=== PATIENT | male | born 1970 | race Hispanic/Latino ===

== ENCOUNTER 2017-09-06 20:03 | Inpatient (IN) | payer MEDICAID ==
[2017-09-06 20:05] VITALS: BMI 20.9
--- NOTE | 2017-09-06 20:09 | ED PDOC ---
Arrival/HPI - General Chief Complaint: Psychiatric Evaluation Time Seen by Provider: 09/06/17 20:04 - History of Present Illness Associated Symptoms (Text): 09/06/17 20:07 Patient was seen and evaluated at another emergency department for depression with suicidal ideation and substance abuse. He was medically cleared there. Therefore, no exam or review of systems is necessary at this time. I reviewed his laboratory data. Patient is aware that he is being admitted to the psychiatric floor for depression with suicidal ideation and substance abuse. Family/Social History Family/Social History: Unknown Family HX Allergies/Home Meds Allergies/Adverse Reactions: Allergies No Known Allergies Allergy (Unverified 09/06/17 20:05) Disposition/Present on Arrival - Present on Arrival Any Indicators Present on Arrival: No History of DVT/PE: No History of Uncontrolled Diabetes: No Urinary Catheter: No History of Decub. Ulcer: No - Disposition Have Diagnosis and Disposition been Completed?: Yes Diagnosis: Depression, Suicidal ideation, Substance abuse Disposition: HOSPITALIZED Disposition Time: 20:09 Patient Plan: Admission Condition: GOOD Forms: [employer] (Estonian)
[2017-09-06 20:47] VITALS: O2SAT 99
[2017-09-06] MEDS ORDERED: Alum-Mag Hydrox-Simethicone Susp (30 mL) PO PRN (22:35)
[2017-09-06] MEDS ORDERED: Magnesium Hydroxide Susp 30 ml UD PO PRN (22:35)
--- NOTE | 2017-09-06 23:34 | PCM.BM ---
<Jerrica Majano - Last Filed: 09/06/17 23:29> Treatment Plan Problems - Problems identified on initial assessmt Anxiety Related to Substance Use Date Initiated: 09/06/17 Time Initiated: 23:34 Assessment reference: NA Status: Active Hopelessness/Helplessness Date Initiated: 09/06/17 Time Initiated: 23:34 Assessment reference: NA Status: Active Ineffective Coping Date Initiated: 09/06/17 Time Initiated: 23:34 Assessment reference: NA Status: Active Altered Sleep Patterns Date Initiated: 09/06/17 Time Initiated: 23:34 Assessment reference: NA Status: Active Nutrition Less than Body Requirements Date Initiated: 09/06/17 Time Initiated: 23:35 Assessment reference: NA Status: Active Treatment assets and liabiliti Patient Assests: cooperative, self-reliant, ADL independent, physically healthy , negotiates basic needs, cognitively intact Patient Liabilities: live alone, financial problems, poor support system, relationship conflicts, substance abuse - Milieu Protocol Maintain good personal hygiene: daily Encourage regular showers, daily Remind patient to perform daily oral care, daily Assist patient to perform ADL's Conduct patient checks and document Observation sheet: Q15 minutes Maintain personal safety: every shift Educate patient to report safety concerns to staff, every shift Monitor environment for contraband/sharps Medication safety: Monitor for expected outcome, potential side effects: every shift, Assess barriers to learning: every shift, Assess readiness for medication education: every shift Discharge/Continuing Care - Education Needs Education Needs: Patient Medication, Patient Diagnosis/Disease Process, Patient Coping Skills, Patient Community resources, Patient Activities of Daily Living, Patient Nutrition, Patient Health Practices/Safety, Patient Personal Hygiene/ Grooming, Patient Aftercare Safety Plan - Discharge Discharge Criteria: Tolerates medication w/o severe side effects, Free of Suicidal thoughts, Normal sleep pattern, Ability to care for self <Zaira Eduardo - Last Filed: 09/07/17 10:14> - Diagnosis (1) Depression Status: Acute Interventions: Effexor XR 75 mg po daily for depression * Neurontin 300 TID, off label for mood control and anxiety * Seroquel 100 mg HS for mood control, off-label for insomnia * Trazodone 50 mg po HS prn: insomnia * Consider naltrexone to help with drug abstinence 09/07/17 10:15 (2) Substance abuse Status: Acute Interventions: Effexor XR 75 mg po daily for depression * Neurontin 300 TID, off label for mood control and anxiety * Seroquel 100 mg HS for mood control, off-label for insomnia * Trazodone 50 mg po HS prn: insomnia * Consider naltrexone to help with drug abstinence 09/07/17 10:15 <Faraz Baker - Last Filed: 09/09/17 10:08> Treatment assets and liabiliti Patient Assests: cooperative, self-reliant, ADL independent, negotiates basic needs, cognitively intact Patient Liabilities: substance abuse - Milieu Protocol Maintain good personal hygiene: daily Encourage regular showers, daily Remind patient to perform daily oral care, daily Assist patient to perform ADL's Conduct patient checks and document Observation sheet: Q15 minutes Maintain personal safety: every shift Educate patient to report safety concerns to staff, every shift Monitor environment for contraband/sharps Medication safety: Monitor for expected outcome, potential side effects: every shift, Assess barriers to learning: every shift, Assess readiness for medication education: every shift Discharge/Continuing Care - Education Needs Education Needs: Patient Medication, Patient Diagnosis/Disease Process, Patient Coping Skills - Discharge Discharge Criteria: Tolerates medication w/o severe side effects, Free of Suicidal thoughts, Normal sleep pattern, Ability to care for self, No longer exhibiting s/s of withdrawal Discharge to:: Home <Laura Rollins - Last Filed: 09/09/17 11:36> Family Contact Family involvement: Family/SO is involved Family contact: Patient agrees to contact <Francesca Koch - Last Filed: 09/09/17 11:42>
[2017-09-07 08:08] LABS: GLUCOSE,FASTING 93 mg/dL (65-110); HDL CHOLESTEROL 37 mg/dL (29-60)
[2017-09-07 08:19] LABS: LDL CHOLESTEROL 84 mg/dL (0-129)
--- NOTE | 2017-09-07 10:13 | PCM.PSYCH ---
Initial Psychiatric Evaluation - Initial Psychiatric Evaluation Type of Admission: Voluntary Legal Status: Capacity History of Present Illness and Precipitating Events: Patient is a single 47 yo homeless male with self-reported history of bipolar depression, anxiety, opiate and cocaine use disorder, multiple prior psychiatric admissions-most recently 2 weeks ago at [facility] in [place], in psychiatric treatment with Dr. Verde, likely noncompliant with medicaitons Effexor and Neurontin who transferred from [facility] at [place] after he presented to their ER with symptoms of depression and active suicidal thoughts to overdose or jump in front of a train in context of heroin and cocaine use. I reviewed [facility] records and met with patient at bedside. Patient appears unkempt and tired. He is oriented to month, year, location and circumstances. Confirms that he has been depressed for a few months with symptoms of low energy , low motivation, lability, poor sleep, anhedonia, low frustration tolerance and hopelessness. Patient claims that has been using drugs during this time as a way of self-medicating. [facility] records indicate that the last time he filled his psychiatric medications was in May 2017. Patient reports his major stressors include his ongoing drug use, finances, homelessness and conflict with his father and girlfriend. Patient is coherent and responses are relevant to questioning. [facility] records indicate that patient endorsed having AH of male and female calling his name. This is likely secondary to drug use, patient doesnt appear to have a primary psychotic disturbance. He denies SI/HI and AVH at this time. He is calm, cooperative without evidence of current distress. There were no behavioral issues upon admission. PSYCHIATRIC HISTORY Patient reported at least 6 prior admissions. He claimed his most recent admission was at [facility] 3 months ago however [facility] records indicate that he was recently hospitalized at [facility] in [place] x2 weeks ago and discharged on Neurontin and Effexor. Other admissions included [facility], [facility], [facility]. Patient reports one SA x1 year ago, he deliberately tried to OD on drugs to kill himself. Patient reportedly follows up with a psychiatrist in [place], [place], Dr. Verde. His psych medications are Effexor XR 150 mg PO Daily and Neurontin 300 mg PO TID. [facility] records indicate that pharmacy was called and the last time he filled these medications was May 2017. SOCIAL HISTORY Born and raised in [place]. Single. No children. Homeless due to conflict with his father. Patient reports having a good relationship with his mother, Eri Wolff. Patient graduated HS. 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 Patient reports being addicted to IV heroin and cocaine for approximately 15 years. Patient stated he last used 5 bags of heroin and one $10 bag of cocaine 4 days ago. Admits to prior history of rehabs. Patient also admitted to history of alcohol abuse, denies any alcohol use for over 10 years. Patient states he smokes 5 cigarettes/day. Patient admits to having a hx of incarcerations, last in 2003, for drug possession. Denies any current legal issues. Current Medications: Active Medications Generic Name Dose Route Start Last Admin Trade Name Freq PRN Reason Stop Dose Admin Acetaminophen 650 mg 09/06/17 22:35 Tylenol 325mg Tab PO Q4 PRN Pain, moderate (4-7) Al Hydrox/Mg Hydrox/Simethicone 30 ml 09/06/17 22:35 Maalox Plus 30 Ml PO DAILY PRN Upset Stomach Clonidine HCl 0.1 mg 09/06/17 21:25 Catapres PO BID PRN Withdrawals Gabapentin 300 mg 09/07/17 08:00 Neurontin PO TID PATITO Protocol Lorazepam 2 mg 09/06/17 21:25 Ativan PO Q6 PRN Agitation Protocol Lorazepam 2 mg 09/06/17 21:25 Ativan IM Q6 PRN Agitation Protocol Magnesium Hydroxide 30 ml 09/06/17 22:35 Milk Of Magnesia PO DAILY PRN Constipation Ondansetron HCl 4 mg 09/06/17 21:25 Zofran Tab PO Q8H PRN Nausea/Vomiting Quetiapine Fumarate 100 mg 09/06/17 22:00 09/06/17 21:53 Seroquel PO 100 mg HS PATITO Administration Protocol Tramadol HCl 50 mg 09/06/17 21:25 Ultram PO Q8 PRN Pain, severe (8-10) Trazodone HCl 50 mg 09/06/17 21:25 09/06/17 21:53 Desyrel PO 50 mg HS PRN Administration Insomnia Venlafaxine HCl 37.5 mg 09/07/17 08:00 Effexor PO DAILY PATITO Ziprasidone 20 mg 09/06/17 21:25 Geodon Cap PO Q6 PRN Agitation Protocol Ziprasidone 20 mg 09/06/17 21:25 Geodon Inj IM Q6 PRN Agitation Protocol Past Psychiatric History - Past Psychiatric History Pertinent Medical Hx (Current Medical&Sleep Prob, Allergies): Allergies Allergy/AdvReac Type Severity Reaction Status Date / Time No Known Allergies Allergy Verified 09/06/17 21:40 Gabapentin [Neurontin] 300 mg PO TID 09/06/17 Venlafaxine [Effexor XR] 150 mg PO DAILY 09/06/17 Mental Status Examination - Affect Affect: Constricted - Motor Activity Motor Activity: Calm - Reliability in Providing Information Reliability in Providing Information: Fair - Speech Speech: Organized - Mood Mood: Depressed, Anxious - Formal Thought Process Formal Thought Process: No Impairment - Obsessions/Compulsions Obsessions: No Compulsions: No - Cognitive Functions Orientation: Person, Place, Situation Sensorium: Alert Attention/Concentration: Easily distracted Estimate of Intelligence: Average Judgement: Imparied, as evidence by: Poor judgement, Imparied, as evidence by: Lack of insight into illness - Risk Risk: Suicidal, Withdrawal - Strength & Assets Inventory Strength & Assets Inventory: Cooperative DSM 5 DX - DSM 5 DSM 5 Diagnosis: Depression NOS Severe Opiate Use Disorder and withdrawal Severe Cocaine Use Disorder and withdrawal SIMD - Recommended/Plan of Treatment Treatment Recommendations and Plan of Treatment: * group, milieu and supportive tx * Effexor XR 75 mg po daily for depression * Neurontin 300 TID, off label for mood control and anxiety * Seroquel 100 mg HS for mood control, off-label for insomnia * Trazodone 50 mg po HS prn: insomnia * Consider naltrexone to help with drug abstinence * Vitals reviewed and noted below: 09/07/17 07:13 Temperature 97.7 F Pulse Rate 68 Respiratory 20 Rate Blood Pressure 97/62 [facility], WBC and PLTS wnl BAL<10 UDS +cocaine and +opiates AST/ALT=69H/74H CXR+ Overaeration suggestive of COPD, otherwise normal CXR [facility] 09/07/17 09/07/17 07:50 07:50 Fasting Glucose 93 Triglycerides 116 Cholesterol 143 LDL Cholesterol Direct 84 HDL Cholesterol 37 TSH 3rd Generation 0.86
--- NOTE | 2017-09-07 16:29 | CP.PCM.CON ---
<Chris Cazares - Last Filed: 09/07/17 16:14> History of Present Illness - History of Present Illness History of Present Illness: Medicine Consult Note for Dr. Armas Reason for Consult: Medical Consult Patient is a 47 year old male with a past medical history of bipolar depression , anxiety, COPD, opiate and cocaine use disorder presenting as a transfer from [facility] for suicidal ideation. Patient has been treated inpatient for psychiatric conditions in the past, including 2 weeks ago at [facility]. Patient states that his only two medications are Effexor and Neurontin. He reports that he is depressed and did not want to live anymore. He did not report any plan. He reports daily heroin use for approximately 15 years. He uses 5-10 bags daily by injecting and snorting. His last day of use was approximately 4 days ago. He has no medical complaints today other than being depressed. Denies fevers, chills, nausea, vomiting, diarrhea, constipation , chest pain, shortness of breath, palpitations, abdominal pain, vision changes , numbness or tingling. PMH: bipolar depression, anxiety, COPD, opiate and cocaine use disorder Social: 5 cigarettes daily, addicted to IV/snorting heroin (4-5 bags daily) and cocaine for approx. 15 years, denies alcohol. Currently homeless, good relationship with his mother but not his father. Allergies: NKDA Meds: Effexor 150 mg PO Daily and Neurontin 300 mg PO TID Review of Systems - Review of Systems All systems: reviewed and no additional remarkable complaints except (as per HPI ) - Constitutional Constitutional: As Per HPI - EENT Eyes: As Per HPI - Cardiovascular Cardiovascular: As Per HPI - Respiratory Respiratory: As Per HPI - Gastrointestinal Gastrointestinal: As Per HPI - Genitourinary Genitourinary: As Per HPI - Musculoskeletal Musculoskeletal: As Per HPI - Integumentary Integumentary: As Per HPI - Neurological Neurological: As Per HPI - Psychiatric Psychiatric: As Per HPI - Endocrine Endocrine: As Per HPI - Hematologic/Lymphatic Hematologic: As Per HPI Past Patient History - Past Social History Smoking Status: Light Smoker < 10 Cigarettes Daily - CARDIAC Hx Cardiac Disorders: No - PULMONARY Hx Respiratory Disorders: No - NEUROLOGICAL Hx Neurological Disorder: No - HEENT Hx HEENT Problems: No - RENAL Hx Chronic Kidney Disease: No - ENDOCRINE/METABOLIC Hx Endocrine Disorders: No - HEMATOLOGICAL/ONCOLOGICAL Hx Blood Disorders: No - INTEGUMENTARY Hx Cellulitis: Yes (Cellulitis on face) - MUSCULOSKELETAL/RHEUMATOLOGICAL Hx Musculoskeletal Disorders: No - GASTROINTESTINAL Hx Gastrointestinal Disorders: No - GENITOURINARY/GYNECOLOGICAL Hx Genitourinary Disorders: No - PSYCHIATRIC Hx Anxiety: Yes Hx Bipolar Disorder: Yes Hx Depression: Yes Hx Substance Use: Yes - SURGICAL HISTORY Hx Surgeries: Yes Hx Appendectomy: Yes (1984) - ANESTHESIA Hx Anesthesia: Yes Hx Anesthesia Reactions: No Hx Malignant Hyperthermia: No Meds Allergies/Adverse Reactions: Allergies Allergy/AdvReac Type Severity Reaction Status Date / Time No Known Allergies Allergy Verified 09/06/17 21:40 - Medications Medications: Current Medications Al Hydrox/Mg Hydrox/Simethicone (Maalox Plus 30 Ml) 30 ml PO DAILY PRN PRN Reason: Upset Stomach Clonidine HCl (Catapres) 0.1 mg PO BID PRN PRN Reason: Withdrawals Gabapentin (Neurontin) 300 mg PO TID PATITO PRN Reason: Protocol Last Admin: 09/07/17 15:11 Dose: Not Given Lorazepam (Ativan) 2 mg PO Q6 PRN; Protocol PRN Reason: Agitation Lorazepam (Ativan) 2 mg IM Q6 PRN; Protocol PRN Reason: Agitation Magnesium Hydroxide (Milk Of Magnesia) 30 ml PO DAILY PRN PRN Reason: Constipation Ondansetron HCl (Zofran Tab) 4 mg PO Q8H PRN PRN Reason: Nausea/Vomiting Quetiapine Fumarate (Seroquel) 100 mg PO HS PATITO PRN Reason: Protocol Last Admin: 09/06/17 21:53 Dose: 100 mg Tramadol HCl (Ultram) 50 mg PO Q8 PRN PRN Reason: Pain, severe (8-10) Trazodone HCl (Desyrel) 50 mg PO HS PRN PRN Reason: Insomnia Last Admin: 09/06/17 21:53 Dose: 50 mg Venlafaxine HCl (Effexor Xr) 75 mg PO DAILY PATITO Ziprasidone (Geodon Cap) 20 mg PO Q6 PRN; Protocol PRN Reason: Agitation Ziprasidone (Geodon Inj) 20 mg IM Q6 PRN; Protocol PRN Reason: Agitation Physical Exam - Constitutional Appears: No Acute Distress, Unkempt - Head Exam Head Exam: ATRAUMATIC, NORMOCEPHALIC - Eye Exam Eye Exam: Normal appearance - ENT Exam ENT Exam: Mucous Membranes Moist - Neck Exam Neck exam: Positive for: Full Rom. Negative for: Lymphadenopathy, Tenderness - Respiratory Exam Respiratory Exam: Clear to Auscultation Bilateral, NORMAL BREATHING PATTERN. absent: Accessory Muscle Use, Rales, Rhonchi, Wheezes, Respiratory Distress - Cardiovascular Exam Cardiovascular Exam: REGULAR RHYTHM, +S1, +S2 - GI/Abdominal Exam GI & Abdominal Exam: Normal Bowel Sounds, Soft. absent: Distended, Firm, Guarding, Rebound, Rigid, Tenderness - Extremities Exam Extremities exam: Positive for: pedal pulses present. Negative for: calf tenderness, pedal edema Additional comments: injection claros with surrounding ecchymosis in antecubital fossa b/l. one injection alan with surrounding ecchymosis on anterior portion of left lower extremity. - Neurological Exam Neurological exam: Alert, CN II-XII Intact, Oriented x3 - Psychiatric Exam Psychiatric exam: Depressed - Skin Skin Exam: Dry, Warm Additional comments: injection claros as noted in extremities exam. no erythema noted. Results - Vital Signs Recent Vital Signs: Last Vital Signs Temp 97.7 F 09/07/17 07:13 Pulse 65 09/07/17 16:13 Resp 20 09/07/17 07:13 BP 103/65 09/07/17 16:13 Pulse Ox 99 09/06/17 20:46 - Labs Labs: Laboratory Results - last 24 hr 09/07/17 09/07/17 09/07/17 07:50 07:50 07:50 Fasting Glucose 93 Triglycerides 116 Cholesterol 143 LDL Cholesterol Direct 84 HDL Cholesterol 37 TSH 3rd Generation 0.86 RPR Nonreactive Assessment & Plan - Assessment and Plan (Free Text) Assessment: Patient is a 47 year old male with a past medical history of bipolar depression , anxiety, COPD, opiate and cocaine use disorder presenting as a transfer from [facility] for suicidal ideation. Medicine team consulted for medical evaluation. Plan: Patient was a trans from [facility] for suicidal ideation. He was evaluated in [facility] emergency room and transferred with medical records. Those medical records were placed in chart and reviewed. UA negative. Left Arm Cellulitis Patient was started on antibiotics at [facility] for left forearm cellulitis. No erythema noted at this time but will continue treatment started at previous hospital. Keflex 500mg PO QID (day 1, treat for 7 days) Transaminitis AST 69/ALT 74 - mild elevation with no abdominal pain/complaints Patient admits to sharing needles, but denies any hx of HIV or Hepatitis Hepatitis panel - pending HIV - pending monitor if hepatitis or HIV positive, patient will need to follow up with ID clinic for treatment. COPD CXR (report from [facility]) - no interval change, overaeration suggestive of COPD Patient advised to cessation of smoking Tobacco Use Patient refused Nicotine Patch Substance Abuse UDS - positive for cocaine and opiates Alcohol - negative management per primary Bipolar/Depression/SI management per primary Patient is resting comfortably in his bed with no medical complaints at this time. Patient is to complete antibiotic course previously started at [facility]. Hep panel and HIV tests order. If positive, patient is to follow up with an infectious disease clinic for treatment. Medicine team is signing off at this time. Please re-consulted as needed. Thank you. Case discussed with Dr. Chanda Perez Debora PGY1 <Shane Armas - Last Filed: 09/07/17 17:18> Meds - Medications Medications: Current Medications Al Hydrox/Mg Hydrox/Simethicone (Maalox Plus 30 Ml) 30 ml PO DAILY PRN PRN Reason: Upset Stomach Cephalexin Monohydrate (Keflex) 500 mg PO Q6 PATITO PRN Reason: Protocol Clonidine HCl (Catapres) 0.1 mg PO BID PRN PRN Reason: Withdrawals Gabapentin (Neurontin) 300 mg PO TID PATITO PRN Reason: Protocol Last Admin: 09/07/17 15:11 Dose: Not Given Lorazepam (Ativan) 2 mg PO Q6 PRN; Protocol PRN Reason: Agitation Lorazepam (Ativan) 2 mg IM Q6 PRN; Protocol PRN Reason: Agitation Magnesium Hydroxide (Milk Of Magnesia) 30 ml PO DAILY PRN PRN Reason: Constipation Ondansetron HCl (Zofran Tab) 4 mg PO Q8H PRN PRN Reason: Nausea/Vomiting Quetiapine Fumarate (Seroquel) 100 mg PO HS PATITO PRN Reason: Protocol Last Admin: 09/06/17 21:53 Dose: 100 mg Tramadol HCl (Ultram) 50 mg PO Q8 PRN PRN Reason: Pain, severe (8-10) Trazodone HCl (Desyrel) 50 mg PO HS PRN PRN Reason: Insomnia Last Admin: 09/06/17 21:53 Dose: 50 mg Venlafaxine HCl (Effexor Xr) 75 mg PO DAILY PATITO Ziprasidone (Geodon Cap) 20 mg PO Q6 PRN; Protocol PRN Reason: Agitation Ziprasidone (Geodon Inj) 20 mg IM Q6 PRN; Protocol PRN Reason: Agitation Results - Vital Signs Recent Vital Signs: Last Vital Signs Temp 97.7 F 09/07/17 07:13 Pulse 65 09/07/17 16:13 Resp 20 09/07/17 07:13 BP 103/65 09/07/17 16:13 Pulse Ox 99 09/06/17 20:46 - Labs Labs: Laboratory Results - last 24 hr 09/07/17 09/07/17 09/07/17 07:50 07:50 07:50 Fasting Glucose 93 Triglycerides 116 Cholesterol 143 LDL Cholesterol Direct 84 HDL Cholesterol 37 TSH 3rd Generation 0.86 RPR Nonreactive Attending/Attestation - Attestation I have personally seen and examined this patient.: Yes I have fully participated in the care of the patient.: Yes I have reviewed all pertinent clinical information: Yes Notes (Text): 09/07/17 17:16 attending note; Patient seen with resident in psychiatric floor. Patient is alert and awake. Not in any acute distress. Patient is a 47 year old male with a past medical history of bipolar depression , anxiety, COPD, opiate and cocaine use disorder presenting as a transfer from [facility] for suicidal ideation. Denies any medical history.Not on any medications. Denies any allergies. Active smoking; smoking cessation is strongly advised. Refused NicoDerm patch. Elevated LFTs; patients with a history of IV drug abuse. Denied previous history of hepatitis C. Agreed for hepatitis and HIV workup. Side effects of drugs and smoking explained in detail. Complete cessation of drug abuse explained in detail. Continue treatment per psychiatrist. Patient is medically stable. Please reconsult as needed.
[2017-09-08 07:41] LABS: ALB/GLOB RATIO 0.9 (1.1-1.8); ALBUMIN 3.4 g/dL (3.0-4.8); ALT/SGPT 73 U/L (7-56); AST/SGOT 55 U/L (17-59); BLOOD UREA NITROGEN 12 mg/dL (7-21); CALCIUM 8.5 mg/dL (8.4-10.5); GFR AFRICAN-AMERICAN > 60; GFR NON-AFRICAN AMERICAN > 60
[2017-09-08] MEDS: Venlafaxine 75 mg ER Cap PO SCH (08:45)
--- NOTE | 2017-09-08 17:46 | PCM.PYCHPN ---
Psychiatric Progress Note - Psychiatric Progress Note Patient seen today, length of contact: 25 min Patient Chief Complaint: "depressed" Problems Identified/Issues Discussed: History of Present Illness and Precipitating Events: Patient is a single 47 yo homeless male with self-reported history of bipolar depression, anxiety, opiate and cocaine use disorder, multiple prior psychiatric admissions-most recently 2 weeks ago at [facility] in [place], in psychiatric treatment with Dr. Verde, likely noncompliant with medicaitons Effexor and Neurontin who transferred from [facility] at [place] after he presented to their ER with symptoms of depression and active suicidal thoughts to overdose or jump in front of a train in context of heroin and cocaine use. I reviewed [facility] records and met with patient at bedside. Patient appears unkempt and tired. He is oriented to month, year, location and circumstances. Confirms that he has been depressed for a few months with symptoms of low energy , low motivation, lability, poor sleep, anhedonia, low frustration tolerance and hopelessness. Patient claims that has been using drugs during this time as a way of self-medicating. [facility] records indicate that the last time he filled his psychiatric medications was in May 2017. Patient reports his major stressors include his ongoing drug use, finances, homelessness and conflict with his father and girlfriend. Patient is coherent and responses are relevant to questioning. [facility] records indicate that patient endorsed having AH of male and female calling his name. This is likely secondary to drug use, patient doesnt appear to have a primary psychotic disturbance. He denies SI/HI and AVH at this time. He is calm, cooperative without evidence of current distress. There were no behavioral issues upon admission. PSYCHIATRIC HISTORY Patient reported at least 6 prior admissions. He claimed his most recent admission was at [facility] 3 months ago however [facility] records indicate that he was recently hospitalized at [facility] in [place] x2 weeks ago and discharged on Neurontin and Effexor. Other admissions included [facility], [facility]. Patient reports one SA x1 year ago, he deliberately tried to OD on drugs to kill himself. Patient reportedly follows up with a psychiatrist in [place], [place], Dr. Verde. His psych medications are Effexor XR 150 mg PO Daily and Neurontin 300 mg PO TID. [facility] records indicate that pharmacy was called and the last time he filled these medications was May 2017. SOCIAL HISTORY Born and raised in [place]. Single. No children. Homeless due to conflict with his father. Patient reports having a good relationship with his mother, Eri Wolff. Patient graduated HS. 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 Patient reports being addicted to IV heroin and cocaine for approximately 15 years. Patient stated he last used 5 bags of heroin and one $10 bag of cocaine 4 days ago. Admits to prior history of rehabs. Patient also admitted to history of alcohol abuse, denies any alcohol use for over 10 years. Patient states he smokes 5 cigarettes/day. Patient admits to having a hx of incarcerations, last in 2003, for drug possession. Denies any current legal issues. PROGRESS NOTE I reviewed recent notes and met with patient at bedside. He still appears unkempt, depressed and tired. He mostly keeps to himself on the unit. He appears withdrawn and guarded to staff members. Patient reported he was too depressed to participate in an interview with social work yesterday. This morning he continue to endorse low mood, and energy. I review his current medications, dosing and indications. Patient confirms that Effexor has been beneficial in improving mood symptoms in the past and would like to continue taking it. He denies any side effects or new discomfort or pain. Patient doesnt appear to be in any distress. Thought process remains coherent and goal directed. There is no indication that patient is hallucinating and he denies any perceptual disturbance. There have been no behavioral issues over the weekend. Diagnostic Results: Depression NOS Severe Opiate Use Disorder and withdrawal Severe Cocaine Use Disorder and withdrawal SIMD Mental Status Examination - Cognitive Function Orientation: Person, Place, Situation Attention: WNL Concentration: Poor Association: Loose Fund of Knowledge: Poor - Mood Mood: Depressed, Anxious - Affect Affect: Constricted - Formal Thought Process Formal Thought Process: No Impairment Goal/Treatment Plan - Goal/Treatment Plan Progress Toward Problem(s) and Goals/Treatment Plan: * group, milieu and supportive tx * Effexor XR 75 mg po daily for depression * Neurontin 300 TID, off label for mood control and anxiety * Seroquel 100 mg HS for mood control, off-label for insomnia * Trazodone 50 mg po HS prn: insomnia * Consider naltrexone to help with drug abstinence * Appreciate f/u by Dr. Armas on 09/07/17~signed off * Vitals reviewed and noted below: Selected Entries 09/08/17 07:00 Temperature 97.0 F L Pulse Rate 60 Respiratory 17 Rate Blood Pressure 129/93 H [facility] LABS SUMMARIZED H/H, WBC and PLTS wnl BAL<10 UDS +cocaine and +opiates AST/ALT=69H/74H CXR+ Overaeration suggestive of COPD, otherwise normal CXR [facility]S 09/07/17 09/07/17 07:50 07:50 Fasting Glucose 93 Triglycerides 116 Cholesterol 143 LDL Cholesterol Direct 84 HDL Cholesterol 37 TSH 3rd Generation 0.86 Laboratory Results - last 24 hr 09/08/17 07:00 Sodium 142 Potassium 3.8 Chloride 105 Carbon Dioxide 27 Anion Gap 13 BUN 12 Creatinine 0.7 L Est GFR ( Amer) > 60 Est GFR (Non-Af Amer) > 60 Random Glucose 92 Calcium 8.5 Total Bilirubin 0.1 L AST 55 ALT 73 H Alkaline Phosphatase 73 Total Protein 6.9 Albumin 3.4 Globulin 3.6 Albumin/Globulin Ratio 0.9 L
[2017-09-09 07:36] VITALS: RESP 20
[2017-09-09 07:45] LABS: HEPATITIS B SURFACE AG Negative (NEGATIVE)
[2017-09-09 07:50] LABS: HEPATITIS A IGM NEGATIVE (NEGATIVE); HEPATITIS B CORE AB NEGATIVE (NEGATIVE)
[2017-09-09] MEDS: Venlafaxine 75 mg ER Cap PO SCH (09:00)
[2017-09-09 09:10] LABS: HEPATITIS C ANTIBODY REACTIVE (NEGATIVE)
--- NOTE | 2017-09-09 15:13 | PCM.PYCHPN ---
Psychiatric Progress Note - Psychiatric Progress Note Patient seen today, length of contact: 25 min Patient Chief Complaint: "I am depressed" Problems Identified/Issues Discussed: Suicide/ homicide prevention, past psychiatric h/o, current psychiatric symptoms , medical problems, risk/benefits and alternatives of medications, medications compliance, coping strategies, substance abuse h/o, relapse prevention, importance of follow up with psychiatrist and therapist, discharge plan. Medical Problems: pt seems to be malnourished Diagnostic Results: 09/08/17 07:00 Lab Results 09/08/17 07:00: Hepatitis A IgM Ab Negative, Hep Bs Antigen Negative, Hep B Core IgM Ab Negative, Hepatitis C Antibody Reactive 09/08/17 07:00: Sodium 142, Potassium 3.8, Chloride 105, Carbon Dioxide 27, Anion Gap 13, BUN 12, Creatinine 0.7 L, Est GFR ( Amer) > 60, Est GFR ( Non-Af Amer) > 60, Random Glucose 92, Calcium 8.5, Total Bilirubin 0.1 L, AST 55 , ALT 73 H, Alkaline Phosphatase 73, Total Protein 6.9, Albumin 3.4, Globulin 3.6, Albumin/Globulin Ratio 0.9 L 09/07/17 07:50: Fasting Glucose 93, Triglycerides 116, Cholesterol 143, LDL Cholesterol Direct 84, HDL Cholesterol 37 09/07/17 07:50: RPR Nonreactive 09/07/17 07:50: TSH 3rd Generation 0.86 Vital Signs Temp Pulse Resp BP Pulse Ox 09/09/17 07:35 97.8 F 58 L 20 107/70 09/08/17 17:53 65 129/86 09/08/17 07:00 97.0 F L 60 17 129/93 H 09/07/17 16:13 65 103/65 09/07/17 07:13 97.7 F 68 20 97/62 L 09/06/17 22:44 18 09/06/17 20:46 98.3 F 71 18 114/80 99 09/06/17 20:34 98.7 F 69 18 124/73 100 09/06/17 20:03 98.7 F 69 18 124/73 100 DSM 5 Symptoms Update: Shortly: Patient is a single 47 yo homeless male with self-reported history of bipolar depression, anxiety, opiate and cocaine use disorder, multiple prior psychiatric admissions-most recently 2 weeks ago at [facility] in [place], in psychiatric treatment with Dr. Verde, likely noncompliant with medicaitons Effexor and Neurontin who transferred from [facility] at [place] after he presented to their ER with symptoms of depression and active suicidal thoughts to overdose or jump in front of a train in context of heroin and cocaine use. 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 pt was seen at the treatment team meeting, pt presented with poor personal hygiene, was unkempt, reported that he feels depressed, low energy, low motivation, lability, poor sleep, anhedonia, low frustration tolerance and hopelessness. He denies SI/HI and AVH at this time, reported being suicidal prior admission, but not now. over the weekend pt needed to be medicated because pt reported to be agitated. He is calm, cooperative without evidence of current distress. There were no behavioral issues upon admission. PSYCHIATRIC HISTORY Patient reported at least 6 prior admissions. He claimed his most recent admission was at [facility] 3 months ago however [facility] records indicate that he was recently hospitalized at [facility] in [place] x2 weeks ago and discharged on Neurontin and Effexor. Other admissions included [facility], [facility], [facility]. Patient reports one SA x1 year ago, he deliberately tried to OD on drugs to kill himself. Patient reportedly follows up with a psychiatrist in [place], [place], Dr. Verde. His psych medications are Effexor XR 150 mg PO Daily and Neurontin 300 mg PO TID. [facility] records indicate that pharmacy was called and the last time he filled these medications was May 2017. pt tolerates meds well, no side effects observed or reported, AIMS 0, no EPS. Diagnostic Results: Depression NOS Severe Opiate Use Disorder and withdrawal Severe Cocaine Use Disorder and withdrawal SIMD Medication Change: Yes Medical Record Reviewed: Yes Consults ordered or reviewed: medical consult appreciated pt was started on antibiotics for cellulitis 09/07/17 #7days Mental Status Examination - Cognitive Function Orientation: Person, Place, Situation Attention: WNL Concentration: Poor Association: Loose Fund of Knowledge: Poor - Mood Mood: Depressed, Anxious - Affect Affect: Constricted - Formal Thought Process Formal Thought Process: No Impairment - Suicidal Ideation Suicidal Ideation: No - Homicidal Ideation Homicidal Ideation: No Goal/Treatment Plan - Goal/Treatment Plan Need for Continued Stay: Remain at risks for inpatient hospitalization, Severe depression anxiety, Discharge may exacerbated symptoms, Failed transitioning, Severe functional impairment Progress Toward Problem(s) and Goals/Treatment Plan: Milieu/structure/supportive therapy Medical consult appreciated, see medical team note for more detailed info SW consultation for discharge plan and social issues Med management PRN meds for possible alcohol withdrawals effexor 75mg po daily for depression and anxiety will continue razodone 50mg po hs for insomnia will give MVI, thiamine, folic acid will discuss naltrexone Family involvement Follow up on labs Will monitor closely Pt was educated about risk/benefits and alternatives of medications, coping strategies (safety plan, suicide prevention), relapse prevention, importance of follow up with psychiatrist and therapist, stay away from drugs/alcohol/smoking Estimated Date of D/C: 09/13/17
[2017-09-09] MEDS: Multivitamin With Minerals Tab PO SCH (15:24)
[2017-09-10 06:41] VITALS: BP 100/67; PULSE 63; TEMP 97.6
[2017-09-10] MEDS ORDERED: Multivitamin With Minerals Tab PO SCH (08:00)
[2017-09-10] MEDS: Multivitamin With Minerals Tab PO SCH (09:18)
[2017-09-10] MEDS: Venlafaxine 75 mg ER Cap PO SCH (09:19)
--- NOTE | 2017-09-10 13:58 | PCM.PYCHDC ---
Mental Status Examination - Mental Status Examination Orientation: Person, Place, Situation, Time Memory: Intact Mood: Neutral Affect: Constricted Speech: Appropriate (but was underproductive) Attention: WNL (improved) Concentration: WNL Association: WNL Fund of Knowledge: WNL Formal Thought Process: No Impairment Description of patient's judgement and insight: Pt has improved insight into mental and medical illness, but limited insight into his addiction problems, pt was compliant with medications and unit rules and regulations, pt was going to groups, was calm, cooperative, socially appropriate, no behavioral incidents, no agitation, no aggression. Psychotic Thoughts and Behaviors: Pt denied v/a/t hallucinations, denied paranoid ideations, pt does not appear to be psychotic, and thought process is goal directed. Suicidal Ideation: No Current Homicidal Ideation?: No Plan: pt adamantly denied thoughts of harming self or others denied intent or plan. Discharge Summary - Discharge Note Reason for Hospitalization: pt was transferred from the other Hospital for evaluation of depression, possible SI in context of drug use. Psychiatric History (includes Medical, Family, Personal Hx): See HPI, h/o mental illness and drugs abuse Laboratory Data: Abnormal Lab Results 09/08/17 07:00 HIV 1&2 Ag/Ab, 4th Gen Nonreactive 09/08/17 07:00 Lab Results 09/08/17 07:00: HIV 1&2 Ag/Ab, 4th Gen Nonreactive 09/08/17 07:00: Hepatitis A IgM Ab Negative, Hep Bs Antigen Negative, Hep B Core IgM Ab Negative, Hepatitis C Antibody Reactive 09/08/17 07:00: Sodium 142, Potassium 3.8, Chloride 105, Carbon Dioxide 27, Anion Gap 13, BUN 12, Creatinine 0.7 L, Est GFR ( Amer) > 60, Est GFR ( Non-Af Amer) > 60, Random Glucose 92, Calcium 8.5, Total Bilirubin 0.1 L, AST 55 , ALT 73 H, Alkaline Phosphatase 73, Total Protein 6.9, Albumin 3.4, Globulin 3.6, Albumin/Globulin Ratio 0.9 L 09/07/17 07:50: Fasting Glucose 93, Triglycerides 116, Cholesterol 143, LDL Cholesterol Direct 84, HDL Cholesterol 37 09/07/17 07:50: RPR Nonreactive 09/07/17 07:50: TSH 3rd Generation 0.86 Vital Signs Temp Pulse Resp BP Pulse Ox 09/10/17 06:39 97.6 F 63 20 100/67 09/09/17 19:58 95 H 110/80 09/09/17 16:00 95 H 110/80 09/09/17 07:35 97.8 F 58 L 20 107/70 09/08/17 17:53 65 129/86 09/08/17 07:00 97.0 F L 60 17 129/93 H 09/07/17 16:13 65 103/65 09/07/17 07:13 97.7 F 68 20 97/62 L 09/06/17 22:44 18 09/06/17 20:46 98.3 F 71 18 114/80 99 09/06/17 20:34 98.7 F 69 18 124/73 100 09/06/17 20:03 98.7 F 69 18 124/73 100 Consultations:: List each consultation separately and include: 1. Reason for request. 2. Findings. 3. Follow-up Consultations: medical consult appreciated pt was started on antibiotics for cellulitis 09/07/17 #7days please see notes for more detailed information Summary of Hospital Course include:: 1. Description of specific treatment plan utilized for patients during their course of treatmen. 2. Summarize the time- course for resolution of acute symptoms and/or regressed behaviors. 3. Describe issues identified and worked on during hospitalization. 4. Describe medication utilized. 5. Describe medical problems identified and treated. 6. Reassessment of suicide risk Summary of Hospital Course: Patient is a single 47 yo homeless male with self-reported history of bipolar depression, anxiety, opiate and cocaine use disorder, multiple prior psychiatric admissions-most recently 2 weeks ago at [facility] in [place], in psychiatric treatment with Dr. Verde, likely noncompliant with medicaitons Effexor and Neurontin who transferred from [facility] at [place] after he presented to their ER with symptoms of depression and active suicidal thoughts to overdose or jump in front of a train in context of heroin and cocaine use. evaluated pt initially and pt presented to be unkempt and tired. He is oriented to month, year, location and circumstances. Confirms that he has been depressed for a few months with symptoms of low energy, low motivation, lability , poor sleep, anhedonia, low frustration tolerance and hopelessness. Patient claims that has been using drugs during this time as a way of self-medicating. [facility] records indicate that the last time he filled his psychiatric medications was in May 2017. Patient reports his major stressors include his ongoing drug use, finances, homelessness and conflict with his father and girlfriend. Patient is coherent and responses are relevant to questioning. [facility] records indicate that patient endorsed having AH of male and female calling his name. This is likely secondary to drug use, patient doesnt appear to have a primary psychotic disturbance. He denies SI/HI and AVH at this time. He is calm, cooperative without evidence of current distress. There were no behavioral issues upon admission. PSYCHIATRIC HISTORY Patient reported at least 6 prior admissions. He claimed his most recent admission was at [facility] 3 months ago however [facility] records indicate that he was recently hospitalized at [facility] in [place] x2 weeks ago and discharged on Neurontin and Effexor. Other admissions included [facility], [facility], [facility]. Patient reports one SA x1 year ago, he deliberately tried to OD on drugs to kill himself. Patient reportedly follows up with a psychiatrist in [place], [place], Dr. Verde. His psych medications are Effexor XR 150 mg PO Daily and Neurontin 300 mg PO TID. [facility] records indicate that pharmacy was called and the last time he filled these medications was May 2017. SOCIAL HISTORY Born and raised in [place]. Single. No children. Homeless due to conflict with his father. Patient reports having a good relationship with his mother, Eri Wolff. Patient graduated . 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 Patient reports being addicted to IV heroin and cocaine for approximately 15 years. Patient stated he last used 5 bags of heroin and one $10 bag of cocaine 4 days ago. Admits to prior history of rehabs. Patient also admitted to history of alcohol abuse, denies any alcohol use for over 10 years. Patient states he smokes 5 cigarettes/day. Patient admits to having a hx of incarcerations, last in 2003, for drug possession. Denies any current legal issues. pt was seen by medical team and abx were started on pt for the left hand cellulitis. pt was stabilized on the following medications: neurontin for mood stabilization trazodone 50mg po hs for depression and insomnia seroquel 100mg po hs for insomnia Effexor 75mg po daily PRN meds such as clonidine, geodon MVI, thiamine, folic acid pt was on PRN meds for possible opioid withdrawals, vitals were stable, pt did not have any physical signs of substances withdrawals. medically sam pt was doing fine as well as from the psychiatric stand point. 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 pt said that he is not depressed and not suicidal, but affect was on constricted side, pt reported that he has follow up appt iwht and he wants to to to [facility] as well as AA,NA meetings. pt might benefit from staying in psych unit longer, but pt refused to stay. pt has a capacity to sign consent for leaving AMA. at the time of d/c At the time of the discharge pt denied been depressed, denied thoughts of harming self or others, denied psychotic symptoms, and pt does not appeared to be psychotic, denied been anxious, pt is not in any imminent danger to self or others, will be following up at , it is patient responsibility to follow up with outpatient clinic, PMD as well as specialists (see note for more detailed information). In case pt will need to obtain results of studies pending at discharge pt was provided with contact information of Psychiatric Inpatient unit [phone] as well as Medical Record Department [phone]. Nicotine patch was offered, pt refused Naltrexone treatment is not indicated at this time because pt was actively using drugs (heroin) prior this admission and it is contraindicated Counseling about smoking and alcohol cessation provided AA meetings as well as smoking cessation treatment program information was provided by the pt was provided with prescriptions for all of medications (please see medication reconciliation form) Pt was educated about safety plan in case of worsening of symptoms or in case of suicidal or homicidal ideation call 911 or go to the nearest ER, also was educated to take meds as prescribed and stay away from drugs, pt verbalized understanding. - Diagnosis (1) Depression Status: Acute (2) Substance abuse Status: Acute - Final Diagnosis (DSM 5) Condition upon Discharge: IMPROVED Disposition: AGAINST MEDICAL ADVICE Follow-up Treatment Plan: At the time of the discharge pt denied been depressed, denied thoughts of harming self or others, denied psychotic symptoms, and pt does not appeared to be psychotic, denied been anxious, pt is not in any imminent danger to self or others, will be following up at , it is patient responsibility to follow up with outpatient clinic, PMD as well as specialists (see note for more detailed information). In case pt will need to obtain results of studies pending at discharge pt was provided with contact information of Psychiatric Inpatient unit [phone] as well as Medical Record Department [phone]. Nicotine patch was offered, pt refused Naltrexone treatment is not indicated at this time because pt was actively using drugs (heroin) prior this admission and it is contraindicated Counseling about smoking and alcohol cessation provided AA meetings as well as smoking cessation treatment program information was provided by the pt was provided with prescriptions for all of medications (please see medication reconciliation form) Pt was educated about safety plan in case of worsening of symptoms or in case of suicidal or homicidal ideation call 911 or go to the nearest ER, also was educated to take meds as prescribed and stay away from drugs, pt verbalized understanding. Prescriptions/Medication Reconciliation: Folic Acid 1 mg PO DAILY #14 tab Gabapentin [Neurontin] 600 mg PO TID #45 tab Multimineral/Multivitamin [Therapeutic-M Tab] 1 tab PO DAILY #14 tab QUEtiapine [Seroquel] 100 mg PO HS #14 tab Thiamine [Vitamin B1 Tab] 100 mg PO DAILY #14 tab traZODone [Desyrel] 50 mg PO HS PRN #14 tab PRN Reason: Insomnia Venlafaxine [Effexor XR] 75 mg PO DAILY #14 cer - Smoking Cessation Smoking Cessation Medication prescribed: No Reason for not providing: pt refused - Antipsychotic Medications Pt discharged on 2 or more routine antipsychotic medications: No
== END 2017-09-10 12:43 | disposition left against medical advice (07) | DRG 426 ==
LOC: ED 20:03 → ERH 20:05 → PSYC 20:33
PROVIDERS: ADMIT Psychiatry & Neurology Psychiatry; ATTEND Psychiatry & Neurology Psychiatry
PROC: GZ3ZZZZ Medication Management (ICD-10-PCS; principal; 2017-09-06)
DX: F32.9 Major depressive disorder, single episode, unspecified (principal); L03.114 Cellulitis of left upper limb; F14.10 Cocaine abuse, uncomplicated; F11.10 Opioid abuse, uncomplicated; J44.9 Chronic obstructive pulmonary disease, unspecified; F41.9 Anxiety disorder, unspecified; G47.00 Insomnia, unspecified; F17.210 Nicotine dependence, cigarettes, uncomplicated; Z91.19 Patient's noncompliance with other medical treatment and regimen; Z59.0 Homelessness